=== PATIENT | male | born 1995 | race Hispanic/Latino ===

== ENCOUNTER 2019-05-01 03:43 | Emergency (ER) | payer BC ==
[2019-05-01] MEDS ORDERED: PENICILLIN V POTASSIUM 500 MG TABLET ONE (04:34)
[2019-05-01] MEDS ORDERED: TRAMADOL HCL 50 MG TABLET ONE (04:34)
== END 2019-05-01 04:40 | disposition home or self-care (01) ==
LOC: EDH 03:43
DX: S02.5XXA Fracture of tooth (traumatic), initial encounter for closed fracture (principal); Z98.890 Other specified postprocedural states; X58.XXXA Exposure to other specified factors, initial encounter; Y93.89 Activity, other specified; Y92.89 Other specified places as the place of occurrence of the external cause; Y99.8 Other external cause status